=== PATIENT | female | born 1985 | race Two or more races ===

== ENCOUNTER 2019-03-26 21:01 | Emergency (ER) | payer OTHER ==
[~2019-03-26] VITALS: Ht 154.9 cm; Wt 62.6 kg
[2019-03-26 21:49] VITALS: BP 113/69
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
== END 2019-03-26 22:21 | disposition home or self-care (01) ==
LOC: ER 21:01
DX: M54.5 Low back pain (principal); V49.49XA Driver injured in collision with other motor vehicles in traffic accident, initial encounter; Y93.89 Activity, other specified; Y92.488 Other paved roadways as the place of occurrence of the external cause; Y99.8 Other external cause status